=== PATIENT | male | born 1965 | race Caucasian/White ===

== ENCOUNTER 2019-12-12 12:02 | Inpatient (IN) | payer BC, OTHER ==
[~2019-12-12] VITALS: Ht 182.9 cm; Wt 145.2 kg
[~2019-12-12 12:02] MED LIST: AMARYL4 MG PO; CIALIS5 MG PO; FLEXERIL PO; GLUCOPHAGE1000 MG PO; LISINOPRIL10 MG PO; NORCO 5-325 TA1 EACH PO; ZOCOR 20 MG TAB20 M1 PO
[2019-12-12 12:04] VITALS: BP 87/39
[2019-12-12 12:46] LABS: WBC 6.4 thou/uL (4.0-11.0)
[2019-12-12 12:48] LABS: ABSOLUTE NEUTROPHILS 4.7 thou/uL (1.4-8.2); BASOPHILS 0.2 % (0.0-2.0); EOSINOPHILS 2.3 % (0.0-3.0); LYMPHOCYTES 13.7 % (24.0-44.0); MCH 30.9 pg (26.0-34.0); MCHC 33.9 g/dL (28.0-37.0); MCV 91.3 fL (80.0-100.0); MONOCYTES 9.8 % (1.0-8.0); PLATELET COUNT 170 thou/uL (150-400); RBC 1.93 mil/uL (4.50-6.00); RDW 14.6 % (10.5-14.5)
[2019-12-12 12:55] LABS: HEMATOCRIT 17.6 % (42.0-52.0)
[2019-12-12 12:59] LABS: CREATININE 5.7 mg/dL (0.7-1.3); POTASSIUM 4.6 mmol/L (3.5-5.1)
[2019-12-12 13:07] LABS: MAGNESIUM 2.1 mg/dL (1.8-2.4); TROPONIN-I 0.06 ng/mL (<0.06)
--- NOTE | 2019-12-12 15:37 | EKG ---
[facility] [place] [address] ELECTROCARDIOGRAM REPORT Name: GLADIS BEARD Room #: REG [facility].#: [id number] Admission: 12/12/19 Attend Phys: Discharge: Date of : 69 Report #: [id number] THIS REPORT FOR: cc: FAM - Family physician unknown FAM - Family physician unknown Nehemiah Taylor MD [facility] ~ THIS REPORT FOR: //name// [facility] ED Test Date: 2019-12-12 Test Time: 12:18:30 Pat Name: GLADIS BEARD Department: Room: Gender: M Room Service Waiter/Waitress: no : 1965 Requested By: Bernabe Saab Order Number: [id number] MD: Nehemiah Taylor Measurements Intervals [place] Rate: 62 P: 48 AR: 184 QRS: 30 QRSD: 168 T: 67 QT: 508 QTc: 516 Interpretive Statements Sinus rhythm Right bundle branch block Compared to ECG 01/31/2005 15:23:45 Right bundle-branch block now present Electronically Signed On 12-12-2019 15:37:07 CDT by Nehemiah Taylor [email or web address] <ELECTRONICALLY SIGNED> By: Nehemiah Taylor MD, FACC 12/12/19 1537 17 17 Nehemiah Taylor MD, FACC /EPI
[2019-12-12 16:32] VITALS: BP 130/67
--- NOTE | 2019-12-12 16:36 | NUR ---
1ST ATTEMPT TO CALL FOR REPORT, RECIEVING NURSE DELIVERING PT CARE. WILL RETURN CALL.
[2019-12-12] MEDS ORDERED: PLAVIX 75 MG TA75 MG PO (17:30)
[2019-12-12] MEDS ORDERED: NEXIUM40 MG PO (17:31)
[2019-12-12] MEDS ORDERED: METOLAZONE 5 MG5 MG PO (17:31)
[2019-12-12] MEDS ORDERED: ASA81BEC PO (17:32)
[2019-12-12] MEDS ORDERED: DRIZALMA SPRINK60 MG PO (17:32)
[2019-12-12] MEDS ORDERED: LOSARTAN POTAS100 MG PO (17:33)
[2019-12-12] MEDS ORDERED: NEPHRO-VITE RX1 TA1 PO (17:33)
[2019-12-12] MEDS ORDERED: LIPITOR 20 MG T20 M1 PO (17:35)
[2019-12-12] MEDS ORDERED: HYDRALAZINE HC100 MG PO (17:45)
[2019-12-12] MEDS ORDERED: RENAGEL800 MG PO (17:46)
[2019-12-12] MEDS ORDERED: MINOXIDIL2.5 MG PO (17:46)
[2019-12-12] MEDS ORDERED: NORVASC 2.5 MG2.5 M1 PO (17:47)
[2019-12-12] MEDS ORDERED: CARVEDILOL25 MG PO (17:48)
[2019-12-12 17:49] VITALS: BP 107/45
[2019-12-12] MEDS ORDERED: RETACRIT4000 UNIT/ IV (18:14)
[2019-12-12] MEDS ORDERED: LASIX 80 MG TAB80 MG PO (18:15)
[2019-12-12] MEDS ORDERED: MELATONIN10 M3 PO (18:16)
[2019-12-12] MEDS ORDERED: GABAPENTIN 100100 MG PO (18:16)
[2019-12-12] MEDS ORDERED: CYCLOBENZAPRINE10 MG PO (18:17)
[2019-12-12] MEDS ORDERED: LANTUS SUBQ (18:17)
[2019-12-12] MEDS ORDERED: HUMALOG100 UNIT/1 SUBQ (18:18)
[2019-12-12] MEDS ORDERED: VITAMIN C + RO500 MG PO (18:19)
[2019-12-12] MEDS ORDERED: [UNRECOGNIZED DRUG - OTHER] PO (18:19)
[2019-12-12] MEDS ORDERED: VIAGRA100 MG PO (18:20)
[2019-12-12] MEDS ORDERED: AZELASTINE205.5 MCG/ NARES (18:20)
[2019-12-12] MEDS ORDERED: AMOXICILLIN 50500 MG PO (18:21)
--- NOTE | 2019-12-12 18:47 | NUR ---
PT. ARRIVED ON UNIT. DENIES ANY CP, DENIES ANY SOB. IV'S ON LEFT HAND AND LEFT FOREARM AREA. FOOD TRAY ARRIVED AND HE ATE 100% ON HIS TRAY, "i WAS STARVING". RIGHT MIDDLE/LOWER BACK PAIN IS "FLARING UP AGAIN". RIGHT UPPER FOREARM IS THE LOCATION OF HIS DILAYSIS CATHETER, PATENT THRILL AND BRUIT BOTH OBSERVED AND PLAPATED TO TOUCH AND FEEL. TOLD ME HE IS CURENTLY ON A DILYSIS SCHEDULE OF , , WEDNESDAY AND THEN HE IS USUALLY THERE 5 HOURS "THEY PULL OFF 5 LITERS PER VISIT ON [facility]". PT. NSR, NO ECTOPY OBSERVED ON MONITOR , ON ROOM AIR ORIENTED AND PT. TO UNIT, CALL CHASE WITHIN REACH, BED LOWERED TO GROUND LOWEST LEVEL. NO PROSTHETICS FOR RIGHT KNEE AT HOSPITAL.
[2019-12-12 19:34] VITALS: BP 121/62
[2019-12-12 20:45] LABS: URINE BILIRUBIN NEGATIVE (Negative); URINE BLOOD TRACE (Negative); URINE CLARITY CLEAR; URINE COLOR YELLOW; URINE GLUCOSE-RANDOM* 1+ (Negative); URINE KETONES NEGATIVE (Negative); URINE LEUKOCYTES-REFLEX NEGATIVE (Negative); URINE NITRITE-REFLEX NEGATIVE (Negative); URINE PROTEIN (DIPSTICK) 2+ (Negative); URINE UROBILINOGEN 0.2 E.U./dl (0.2-1.0)
[2019-12-12 20:51] LABS: BACTERIA-REFLEX None Seen /HPF (None Seen); CASTS None Seen /LPF (None Seen); CRYSTALS None Seen /LPF (None Seen); SQUAMOUS 0-3 Few /LPF (0-3); URINE RBC 0-2 Rare /HPF (0-2); URINE WBC-REFLEX 0-5 Rare /HPF (0-5)
[2019-12-12 20:53] LABS: AMP/METHAMP Negative (Negative); BARBITURATES Negative (Negative); BENZODIAZEPINES Negative (Negative); COCAINE Negative (Negative); METHADONE Negative (Negative); OPIATES Negative (Negative); PCP Negative (Negative)
[2019-12-12 23:08] VITALS: BP 120/47; BP 132/57
[2019-12-12 23:17] VITALS: BP 127/58
[2019-12-13 05:17] LABS: CALCIUM 7.4 mg/dL (8.5-10.1); CREATININE 6.6 mg/dL (0.7-1.3); POTASSIUM 4.1 mmol/L (3.5-5.1); WBC 6.1 thou/uL (4.0-11.0)
[2019-12-13 05:20] LABS: HEMATOCRIT 20.1 % (42.0-52.0); HEMOGLOBIN 6.8 gm/dL (14.0-18.0); MCH 31.1 pg (26.0-34.0); MCV 91.3 fL (80.0-100.0); RBC 2.2 mil/uL (4.50-6.00); RDW 14.5 % (10.5-14.5)
[2019-12-13 05:50] VITALS: BP 122/69
--- NOTE | 2019-12-13 06:18 | NUR ---
ASSUME CARE 1900. PT/VITALS STABLE. INTERMITTENT LOWER BACK PAIN INDICATED. MODERATE TOLERANCE TO ACTIVITY. RIGHT BKA. PT IS WHEEL CHAIR BOUND. SR/BBB ON MONITOR. ADEQUATE REST NOTED THROUGH THE NIGHT. NO DISTRESS NOTED. ASSESSMENT CHARTED. PLAN IS FOR POSSIBLE EGD/COLONOSCOPY WITHIN A FEW DAYS. PT ON CLEAR LIQUID DIET NOW. WILL CONTINUE TO MONITOR AND FOLLOW WITH POC
[2019-12-13 07:00] VITALS: BP 148/71
[2019-12-13 11:15] VITALS: BP 146/70
--- NOTE | 2019-12-13 11:48 | NUR ---
Case opened to follow for dc planning. Hearse Driver visited with the pt and his spouse Geno at bedside. The pt is drowsy this morning and sitting up in bed. Pt defers to spouse for history and dc planning efforts. reports she has a dpoa document at home if needed. The pt has a rt BKA and is ESRD on dialysis.The pt was getting home health services prior to admission thru [facility]. His reports he was being referred to [facility] for inpt acute rehab eval per home PT Damian ([phone]) and his ortho Dr. Baker. He recently started working with his new prothesis and has 4 steps to get in and out of his home for dialysis MWF. He is disabled and goes to [facility]. His brother or a friend take him as his works fulltime days. His primary ins is per her employer and secondary is Medicare. He functions at a w/c level currently and does transfers over the w/c wheel with lots of bruising. He gets up and down the steps using a cooler to balance his rt stump. She has been trying to locate a [employer] to bid out a ramp due to saftey concerns. Local amputee support gp liason contact provided to the spouse for possible resource/referral info. She notes that he has been needing extra hemo dialysis runs to get more fluid off. Pt admitted with GI bleed and workup is in progress. Will request PT/OT/Rehab evals and initiate referral to [facility] for possible transfer to acute rehab once he is medically stable. Pt's spouse hopeful he can go directly there. His prothesis is currently at home. Care team updated. Dc raw material planner to fax the referral. [facility] liason Devika notified.
[2019-12-13 13:26] VITALS: BP 131/76; BP 140/75
[2019-12-13 13:41] LABS: % SATURATION 43 % (20-39); IRON 110 ug/dL (65-175); TIBC 255 ug/dL (250-450)
--- NOTE | 2019-12-13 13:52 | NUR ---
FAXED REFERRAL TO [facility] SPOKE WITH ROLANDO IN ADM SHE RECEIVED REFERRAL AND WILL REVIEW. DP TO FOLLOW.
[2019-12-13 16:45] VITALS: BP 175/87
--- NOTE | 2019-12-13 17:29 | NUR ---
PT ALERT AND ORIENTED. VSS. HAD DIALYSIS TODAY. PRN PAIN MED GIVEN WITH PARTIAL RELIEF. ON CLEAR LIQUIDS. SR ON TELE. NO CONCERNS AT THIS TIME.
[2019-12-13 20:28] VITALS: BP 154/92
[2019-12-14 03:12] VITALS: BP 168/71
--- NOTE | 2019-12-14 03:45 | NUR ---
CARE ASSUMED 1900. PT ALERT AND ORIENTED. VITALS STABLE. DENIES CHEST PAIN, NAUSEA OR VOMITING. C/O LOWER BACK PAIN, FENTANYL 25 MCG Q 4H GIVEN. CPAP OVERNIGHT., NO OXYGEN NEEDED. WILL CONTINUE TO MONITOR AND FOLLOW POC.
[2019-12-14 07:49] VITALS: BP 172/94
--- NOTE | 2019-12-14 08:02 | 2DMMODE ---
[facility] [address] [place] [address] 2 D/M-MODE ECHOCARDIOGRAM Name: GLADIS BEARD Room #: 203-P ADM IN M.R.#: [id number] Admission: 12/12/19 Attend Phys: Butch Marks MD Discharge: Date of : 69 Report #: [id number] THIS REPORT FOR: cc: FAM - Family physician unknown FAM - Family physician unknown Nehemiah Taylor MD [facility] ~ APPROVED REPORT Study performed: 12/14/2019 06:52:52 EXAM: Comprehensive 2D, Doppler, and color-flow Echocardiogram Patient Location: Bedside Room #: 203 Status: routine BSA: 2.57 HR: 84 bpm BP: 168/71 mmHg Rhythm: NSR Other Information Study Quality: Adequate Indications Short of breath, history of MRSA, endocarditis. Hx: cardiac stents, PVD, ESRD, DM, Right BKA. 2D Dimensions RVDd: 42.52 mm IVSd: 14.77 (7-11mm) LVOT Diam: 21.76 (18-24mm) LVDd: 48.64 mm PWd: 13.84 (7-11mm) Ascending Ao: 28.96 (22-36mm) LVDs: 35.06 (25-40mm) Aortic Root: 31.15 mm Volumes Left Atrial Volume (Systole) Single Plane 4CH: 107.62 mL Single Plane 2CH: 103.13 mL LA ESV Index: 44.00 mL/m2 Aortic Valve AoV Peak Manuel.: 2.20 m/s AO Peak Gr.: 19.34 mmHg LVOT Max P.79 mmHg AO Mean Gr.: 9.25 mmHg AO V2 Mean: 1.42 m/s LVOT Max V: 1.56 m/s [facility] [address] [address] 2 D/M-MODE ECHOCARDIOGRAM Name: CHIRAGGLADIS Room #: 203-P [facility] IN [facility].#: [id number] Admission: 12/12/19 Attend Phys: Butch Marks MD Discharge: Date of : 69 Report #: [id number] AO V2 VTI: 41.31 cm SANDY Vmax: 2.65 cm2 Mitral Valve E/A Ratio: 1.3 MV Decel. Time: 190.50 ms MV E Max Manuel.: 1.74 m/s MV A Manuel.: 1.30 m/s MV PHT: 55.25 ms IVRT: 59.98 ms Pulmonary Valve PV Peak Manuel.: 1.60 m/s PV Peak Gr.: 10.22 mmHg Pulmonary Vein P Vein S: 0.40 m/s P Vein D: 0.72 m/s P Vein S/D Ratio: 0.56 Tricuspid Valve TR Peak Manuel.: 3.44 m/s RAP Estimate: 15.00 mmHg TR Peak Gr.: 47.32 mmHg PA Pressure: 62.00 mmHg Left Ventricle The left ventricle is normal size. Mild to moderate concentric left ventricular hypertrophy. Left ventricular systolic function is normal. LVEF is 60-65%. Moderate diastolic dysfunction is present. Right Ventricle Right ventricle is at the upper limits of normal. The right ventricular systolic function is normal. Atria Left atrium is moderately dilated. Right atrium is mildly dilated. Aortic Valve Aortic valve leaflets are mildly thickened and calcified. Trace aortic regurgitation. There is no aortic valvular stenosis. Mitral Valve The mitral valve is normal in structure. Mild mitral annular calcification. Mild mitral regurgitation. No evidence of mitral valve stenosis. [facility] [address] [place] [address] 2 D/M-MODE ECHOCARDIOGRAM Name: GLADIS BEARD Room #: 203-P ADM IN M.R.#: [id number] Admission: 12/12/19 Attend Phys: Butch Marks MD Discharge: Date of : 69 Report #: [id number] Tricuspid Valve The tricuspid valve is normal in structure. Mild to moderate tricuspid regurgitation. Estimated PAP is 60mmHg. Pulmonic Valve Pulmonic valve is not well visualized. Mild pulmonic regurgitation. Great Vessels The aortic root is normal in size. The ascending aorta is normal in size. IVC is dilated and collapses <50% with inspiration. Pericardium There is no pericardial effusion. <Conclusion> Normal left ventricle size, moderate concentric hypertrophy Ejection fraction 60% Mild diastolic dysfunction Mild biatrial enlargement Mild mitral valve insufficiency Moderate tricuspid valve insufficiency Severe pulmonary hypertension, PA pressure systolic estimated at 60 mmHg No pericardial effusion <ELECTRONICALLY SIGNED> By: Nehemiah Taylor MD, FACC 12/14/19800 0 0 Nehemiah Taylor MD, FACC /INF
--- NOTE | 2019-12-14 10:34 | NUR ---
Spoke with [facility] they have referral. Need therapy evals. Plan coloscopy/endoscopy.
[2019-12-14 11:26] VITALS: BP 123/76
[2019-12-14 16:53] VITALS: BP 160/79
[2019-12-14 20:28] VITALS: BP 145/72
--- NOTE | 2019-12-15 03:13 | NUR ---
CARE ASSUMED 1899. PT ALERT AND ORIENTED. MOVING INDEPENDENTLY IN HIS ROOM. C/O CHRONIC BACK PAIN ALLEVIATED MY PRN PAIN MEDS. NPO SINCE MIDNIGHT FOR PENDING EGD/COLONOSCOPY THIS AM. NO TELE CONCERNS. WILL CONTINUE TO MONITOR AND FOLLOW POC.
[2019-12-15 03:56] VITALS: BP 146/61
[2019-12-15 05:18] LABS: HEMATOCRIT 23.7 % (42.0-52.0); HEMOGLOBIN 8.2 gm/dL (14.0-18.0); MCH 30.9 pg (26.0-34.0); MCHC 34.5 g/dL (28.0-37.0); MCV 89.6 fL (80.0-100.0); RBC 2.65 mil/uL (4.50-6.00); RDW 14.6 % (10.5-14.5); WBC 7.2 thou/uL (4.0-11.0)
[2019-12-15 05:27] LABS: CALCIUM 8.3 mg/dL (8.5-10.1); POTASSIUM 4.3 mmol/L (3.5-5.1)
[2019-12-15 08:02] VITALS: BP 180/76
[2019-12-15] MEDS ORDERED: RENVELA800 MG PO (09:55)
--- NOTE | 2019-12-15 10:35 | NUR ---
Received awake on bed. On nothing per orem, pt informed and aware. A+Ox4. On room air. Vital signs stable- with BP elevation noted; ongoing dialysis- expecting to remove 2L as per dialysis nurse- will let RN know if BP remains elevated. On telemetry; no complaints of chest pain, crushing sensation and heaviness; strips attached to chart. On blood sugar monitoring- taken and recorded according; with sliding scale insulin ordered. Scheduled for EGD/Colonoscopy today, consent signed; RN ERIC called, pt supposed to have procedure prior to dialysis, informed her that pt has been hooked up before shift change this AM and won't be done til noon time. Ongoing dialysis; dialysis access at R upper arm. With R BKA- stump fully healed; no dressing in place; prosthesis at bedside. With SL at L AC- intact and flushing well. Assisted in ADLs. Falls bundle in place. No nausea, no vomiting and no abdominal pain noted upon assessment. Able to turn self in bed. To continue monitoring patient.
--- NOTE | 2019-12-15 11:35 | NUR ---
spoke with . Patient dializing. Process prior to hosp stay was eval for acute rehab at [facility]. Patient completed last Home health physical therapy visit with Hakeem. The referral to [facility] began outpatient. It was initiated with Dr John and Rena for prosethises training. reports 5N evaled and she is agreeable to either facility. Pending bed status on 5N cont to update [facility].
[2019-12-15 11:36] VITALS: BP 172/84
[2019-12-15 13:24] LABS: CALCIUM 8.9 mg/dL (8.5-10.1); POTASSIUM 3.5 mmol/L (3.5-5.1)
[2019-12-15 13:27] LABS: CREATININE 2.9 mg/dL (0.7-1.3)
[2019-12-15 16:40] VITALS: BP 193/79
[2019-12-15 18:26] VITALS: BP 174/79
[2019-12-15 19:30] VITALS: BP 167/76
[2019-12-16 03:40] VITALS: BP 175/77
--- NOTE | 2019-12-16 05:35 | NUR ---
NO CONCERNS OVERNIGHT, PAIN MANAGEMENT OF LOWER BACK PAIN WAS REMAINS THE GOAL. SA ON THE MONITOR. NO CHEST PAIN, NO SOB REPORTED. WILL CONTINUE TO MONITOR AND FOLLOW POC.
[2019-12-16 10:30] VITALS: BP 155/76
[2019-12-16 11:15] VITALS: BP 155/76
--- NOTE | 2019-12-16 18:22 | NUR ---
ASSESSMENT DOCUMENTED, VSS AND AFEBRILE. LOWER BACK PAIN, AND MEDICATED INDICATED. NO SOB, OR ACUTE DISTRESS NOTED.
[2019-12-16 19:30] VITALS: BP 154/73
[2019-12-17 03:30] VITALS: BP 138/68
[2019-12-17 03:38] LABS: HEMATOCRIT 20.1 % (42.0-52.0); MCH 31.1 pg (26.0-34.0); MCHC 34.6 g/dL (28.0-37.0); MCV 89.8 fL (80.0-100.0); RBC 2.24 mil/uL (4.50-6.00); RDW 15.1 % (10.5-14.5); WBC 6.3 thou/uL (4.0-11.0)
[2019-12-17 03:44] LABS: CALCIUM 8.2 mg/dL (8.5-10.1); MAGNESIUM 2.4 mg/dL (1.8-2.4); POTASSIUM 4.4 mmol/L (3.5-5.1)
--- NOTE | 2019-12-17 05:52 | NUR ---
Pt. rested quietly at intervals during the night when checked on during frequent rounds. He c/o chronic back pain and ivp pain meds given (see emar) with some relief noted. No active bleeding.
[2019-12-17 08:36] VITALS: BP 137/71
[2019-12-17 13:19] VITALS: BP 138/73
[2019-12-17 13:31] LABS: APTT 28.4 Seconds (24.5-32.8); PROTIME 10.5 Seconds (9.3-11.4)
[2019-12-17 14:30] VITALS: BP 138/73
[2019-12-17 16:30] VITALS: BP 184/85
--- NOTE | 2019-12-17 17:34 | NUR ---
ASSESSMENT DOCUMENTED, SLEPT ON AND OFF THROUGHOUT THE DAY, VSS AND AFEBRILE. MEDICATED FOR LOWER BACK PAIN. RBC ORDERED TO GIVE TOMORROW WITH DIALYSIS. AND WILL CONTINUE WITH POC.
[2019-12-17 19:49] VITALS: BP 135/69
[2019-12-18 04:27] LABS: CALCIUM 7.7 mg/dL (8.5-10.1); CREATININE 6.9 mg/dL (0.7-1.3); MAGNESIUM 2.4 mg/dL (1.8-2.4); POTASSIUM 4.3 mmol/L (3.5-5.1)
[2019-12-18 05:33] VITALS: BP 171/83
[2019-12-18 08:30] VITALS: BP 145/79; BP 168/85; BP 180/111
[2019-12-18 08:58] LABS: POLYS 69.4 % (36.0-66.0)
[2019-12-18 09:00] LABS: ABSOLUTE NEUTROPHILS 4.6 thou/uL (1.4-8.2); BASOPHILS 0.5 % (0.0-2.0); EOSINOPHILS 3.3 % (0.0-3.0); HEMOGLOBIN 6.7 gm/dL (14.0-18.0); LYMPHOCYTES 19.8 % (24.0-44.0); MCH 30.7 pg (26.0-34.0); MCHC 34.5 g/dL (28.0-37.0); PLATELET COUNT 170 thou/uL (150-400); RBC 2.17 mil/uL (4.50-6.00); RDW 14.4 % (10.5-14.5); WBC 6.7 thou/uL (4.0-11.0)
[2019-12-18 09:07] VITALS: BP 140/91
[2019-12-18 09:42] LABS: HEMATOCRIT 19.3 % (42.0-52.0)
[2019-12-18 16:00] VITALS: BP 183/94
--- NOTE | 2019-12-18 17:06 | PATH ---
[facility] [address] [place] [address] PATHOLOGY RPT PROCEDURE Name: GLADIS JOSHI Room #: 203-P ADM IN M.R.#: [id number] Admission: 12/12/19 Date of : 69 Discharge: Report #: [id number] Path Case #: [id number] [facility] Accession Number: [id number] . 01 Material submitted: . stomach - BIOPSY OF GASTRITIS R/O H. PYLORI . 01 Clinical history: . ALTERED MENTAL STATUS . 02 Diagnosis: Gastric mucosa, gastritis, rule out H. pylori, endoscopic biopsy: - Mild chronic gastritis with features of reactive gastropathy. - Negative for intestinal metaplasia or atrophy. - Negative for Helicobacter pylori (properly-controlled immunohistochemical stain performed). . (IUV:mml; 12/18/2019) QLM 12/18/2019 1345 Local . 02 Electronically signed: . Radha Lunsford MD, Pathologist NPI- [id number] . 01 Gross description: . Received in formalin labeled "Gladis Joshi BX of gastritis rule out H. pylori" are multiple kemp-brown soft tissue fragments measuring in aggregate 0.7 x 0.5 x 0.1 cm. The specimen is submitted entirely in A1. ([facility]; 12/17/2019) [facility] 12/17/2019 1042 Local . 02 Pathologist provided ICD-10: K29.50 . 02 CPT . 753795, [id number] Specimen Comment: A courtesy copy of this report has been sent to [phone] Specimen Comment: [id number] Specimen Comment: Report sent to / DR STRICKLAND Performed at: [address] [id number] MD Brannon Hopson MD Phone: [phone] Performed at: [address] [id number] [address] [address] PATHOLOGY RPT PROCEDURE Name: GLADIS JOSHI Room #: 203-P ADM IN M.R.#: [id number] Admission: 12/12/19 Date of : 69 Discharge: Report #: [id number] Path Case #: [id number] MD Radha Lunsford MD Phone: [phone]
--- NOTE | 2019-12-18 18:56 | NUR ---
MEDICATED NEEDED FOR BACK PAIN, BIOPSY WAS DONE TODAY AND SENT TO LAB. DIALIZED AND VSS. DIALYSIS MACHINE BP READING WAS WRONG. PROGRESSING TOWARDS GOALS AND WILL CONTINUE WITH POC.
[2019-12-18 19:09] VITALS: BP 15/81
[2019-12-18 19:10] VITALS: BP 151/81
--- NOTE | 2019-12-19 04:00 | NUR ---
ASSESSMENTS CHARTED, MEDS CHARTED GIVEN. PATIENT RESTING ON BED DURING SHIFT. ALERT AND ORIENTED. HAS LEFT LOWER BACK PUNCTURE SITE FROM SPINAL DISC ASPIRATION. C/O BACK PAIN CHRONIC. FENTANYL GIVEN CHARTED. FALL PRECAUTIONS IN PLACE DURING SHIFT. PLAN OF CARE TO CONTINUE ABX THERAPY.
[2019-12-19 05:00] VITALS: BP 162/88
[2019-12-19 08:00] VITALS: BP 142/64
[2019-12-19 09:43] LABS: HEMATOCRIT 20.8 % (42.0-52.0); HEMOGLOBIN 7.1 gm/dL (14.0-18.0); MCH 30.5 pg (26.0-34.0); MCHC 34.3 g/dL (28.0-37.0); MCV 88.8 fL (80.0-100.0); RBC 2.34 mil/uL (4.50-6.00); RDW 14.6 % (10.5-14.5); WBC 7.3 thou/uL (4.0-11.0)
--- NOTE | 2019-12-19 10:44 | NUR ---
Spoke with patient and . Discussed 5N/[facility]. They chose to cont plan for [facility]. They allow dtr to visit on Halloween and they are interested in amputee program. Updated [facility] and requested they seek auth. Casemgt following.
[2019-12-19 11:45] VITALS: BP 149/68
[2019-12-19 12:00] VITALS: BP 105/58
--- NOTE | 2019-12-19 14:17 | NUR ---
Nutrition: pt admitted with generalized weakness, ABLA. GIB suspected diverticular source per GI. Hx ESRD on Hemodialysis, NIDDM, Rt BKA. Eating well 100% of meals on Renal, 2000 arsen carb controlled diet. Pt voices no diet related questions. BG 182-290 on SSI. Consider pt as low nutrition risk.
--- NOTE | 2019-12-19 16:13 | NUR ---
FAXED CLINICAL UPDATE TO [facility] RECEIVED CONFIRMATION AND LEFT MSG WITH ROLANDO IN ADM.
[2019-12-19 16:15] VITALS: BP 162/73
--- NOTE | 2019-12-19 17:50 | NUR ---
RECEIVED PT'S CARE AROUND 1600 FROM MARGY JACINTO; PT. AOX4; PM MEDICATIONS GIVEN; EDUCATED ABOUT FALL PRECAUTIONS; 1600 RE-ASSESSMENT PERFORMED; MONITORING; WILL PASS ON REPORT;
[2019-12-19 20:04] VITALS: BP 128/60
--- NOTE | 2019-12-20 04:21 | NUR ---
ASSUMED PT'S CARE @ 2300. PT ALERT AND ORIENTED. PT SLEPT OFF AND ON THIS SHIFT. PRN PAIN MED GIVEN PER PT'S REQUEST. LFA IV SL. DIALYSIS TODAY. TOTAL OF 800ML VOID THIS SHIFT. FALL PRECAUTIONS IN PLACE. CALL LIGHT WITHIN REACH. PT ENCOURAGED TO CALL WHEN NEEDING ASSISTANCE. WILL CONTINUE TO MONITOR.
[2019-12-20 05:19] VITALS: BP 149/74
[2019-12-20 08:15] VITALS: BP 165/93
[2019-12-20 11:05] VITALS: BP 161/107
--- NOTE | 2019-12-20 14:16 | NUR ---
[facility] is in process of obtaing authorization for acute rehab. Patient is now on IV pain medication. he cannot rec at acute rehab. Rn aware attempting to switch to oral.
[2019-12-20 15:45] VITALS: BP 177/91
[2019-12-20 16:00] LABS: HEMATOCRIT 21.6 % (42.0-52.0); HEMOGLOBIN 7.3 gm/dL (14.0-18.0); MCH 30.3 pg (26.0-34.0); MCHC 33.9 g/dL (28.0-37.0); MCV 89.4 fL (80.0-100.0); RBC 2.42 mil/uL (4.50-6.00); RDW 14.8 % (10.5-14.5); WBC 7.9 thou/uL (4.0-11.0)
--- NOTE | 2019-12-20 16:02 | NUR ---
FAXED CLINICAL UPDATE TO [facility] SPOKE WITH ROLANDO IN ADM SHE RECEIVED UPDATE AND IS WORKING ON AUTH,
--- NOTE | 2019-12-20 16:06 | PATH ---
[facility] [address] [place] [address] PATHOLOGY RPT PROCEDURE Name: GLADIS BEARD Room #: 203-P ADM IN M.R.#: [id number] Admission: 12/12/19 Date of : 69 Discharge: Report #: [id number] Path Case #: [id number] Note [facility] Accession Number: [id number] TESTS RESULT FLAG UNITS REF RANGE LAB Clinician Provided Cytology Information No. of containers..01 Other (Miscellaneous) Source: CSF DIAGNOSIS: 02 CSF NEGATIVE FOR MALIGNANT EPITHELIAL CELLS. SCANT CELLULARITY. OCCASIONAL LYMPHOCYTES IDENTIFIED. NEGATIVE FOR VIRAL INCLUSIONS OR PARASITIC ORGANISMS. Pathologist ICD10: 02 R79.89 Signed out by: Radha Lunsford MD, Pathologist NPI- [id number] Performed by: Judy Kruse, Batcher Operator ([facility]) Gross description: 01 5ML, CLEAR COLORLESS, 1 TP /LCS 12/19/2019 1103 Local FLAG LEGEND: L-Low Normal,H-High Normal,LL-Alert Low,HH-Alert High <-Panic Low,>-Panic High,A-Abnormal,AA-Critical Abnormal Performed at: [address] [place] [address] Calderon Rothman MD, [address] [address] Radha Lunsford MD, Specimen Comment: A courtesy copy of this report has been sent to [phone] Specimen Comment: [phone] Specimen Comment: Report sent to / DR CH Performed at: [address], [place], [place] [id number] MD Calderon Rothman MD Phone: [phone]
--- NOTE | 2019-12-20 16:21 | NUR ---
ASSESSMENT CHARTED. PT ALERT AND ORIENTED. VSS. HAD DIALYSIS THIS AM. PRN PAIN MED GIVEN WITH PARTIAL RELIEF. PARTICIPATED IN PT/OT. NO CONCERNS AT THIS TIME. PROGRESSING WELL TOWARDS DISCHARGE GOAL.
[2019-12-20 20:24] VITALS: BP 131/73
[2019-12-21 03:09] VITALS: BP 145/83
--- NOTE | 2019-12-21 04:35 | NUR ---
CARE ASSUMED 1900. PT ALERT AND ORIENTED. VITALS STABLE. C/O BACK PAIN. ALLEVIATED BY TRAMADOL. DENIES N/V/D. NO CHEST PAIN REPORTED. WILL CONTINUE TO MONITOR AND FOLLOW POC.
[2019-12-21 05:39] LABS: HEMOGLOBIN 6.7 gm/dL (14.0-18.0); RDW 15.4 % (10.5-14.5); WBC 8.8 thou/uL (4.0-11.0)
[2019-12-21 05:42] LABS: MCH 31.2 pg (26.0-34.0); MCV 89.3 fL (80.0-100.0); RBC 2.16 mil/uL (4.50-6.00)
[2019-12-21 05:53] LABS: HEMATOCRIT 19.2 % (42.0-52.0)
[2019-12-21 05:54] LABS: CALCIUM 7.9 mg/dL (8.5-10.1); CREATININE 4.6 mg/dL (0.7-1.3); MAGNESIUM 2.3 mg/dL (1.8-2.4); POTASSIUM 3.8 mmol/L (3.5-5.1)
[2019-12-21 08:00] VITALS: BP 165/79
[2019-12-21 11:16] VITALS: BP 117/57; BP 142/75
[2019-12-21 15:00] VITALS: BP 106/54
--- NOTE | 2019-12-21 15:51 | NUR ---
ASSESSMENT CHARTED. PT ALERT AND ORIENTED. VSS. HAD 1 UNIT OF BLOOD TRANSFUSION THIS AM. PRN PAIN MED GIVEN FOR CHRONIC LOWER BACK PAIN. NPO AFTER MIDNIGHT FOR EGD IN AM. NO CONCERNS AT THIS TIME.
--- NOTE | 2019-12-21 15:58 | NUR ---
[facility] updated, pt with low hgb and getting a unit of blood today. GI reconsulted and pt is npo for EGD in the am. They are in the process of obtaining ins auth and will touch base tomorrow on dc timeframe.
[2019-12-21 16:05] LABS: HEMATOCRIT 22.1 % (42.0-52.0); HEMOGLOBIN 7.5 gm/dL (14.0-18.0)
[2019-12-21 20:15] VITALS: BP 110/89
[2019-12-22 04:15] VITALS: BP 130/45
--- NOTE | 2019-12-22 04:46 | NUR ---
Assumed pt care at 1900. Pt is alertr and oriented. No sign of distress noted in pt. Pt is stable. Denies pain. Fall precaution in place. Assessment completed and documented. Scheduled meds administered to pt. Pt is NPO after midnight for a scheduled EGD. No acute events overnight. Continue to monitor. No further needs at this time.
[2019-12-22 07:32] VITALS: BP 106/73
--- NOTE | 2019-12-22 09:53 | P ---
[facility] [address] [place] [address] PROCEDURE REPORT Name: GLADIS BEARD Room #: 203-P ADM IN M.R.#: [id number] Admission: 12/12/19 Attend Phys: Butch Marks MD Discharge: Date of : 69 Report #: [id number] THIS REPORT FOR: cc: FAM - Family physician unknown FAM - Family physician unknown Lopez Hernandez MD ~ CC: Butch Marks MD FAM unknown PROCEDURE PERFORMED: Colonoscopy with bleeding control. HISTORY OF PRESENT ILLNESS: The patient is a 54-year-old male with a history of end-stage renal disease, on hemodialysis; chronic anemia. Hemoglobin recently was in the 9 range. On admission, he was hypotensive, and an admit hemoglobin of 6.0. He was transfused 2 units, he is at 8.2. He denied any obvious bright red blood per rectum or melena. The patient is on aspirin and Plavix, these have been held for the last few days. He is on Nexium. Upper endoscopy was just performed, which was normal. Plan is for colonoscopy. DESCRIPTION OF PROCEDURE: The risks and benefits of the procedure were explained to the patient, those risks including but not limited to bleeding, perforation and the risk of sedation. He understood these risks and gave informed consent. Sedation was given using propofol per anesthesia. Next, a digital rectal exam was initially performed, which was normal. Next, using a standard Olympus colonoscope, the scope was placed in the patient's anus and advanced under direct vision to the cecum. The overall prep was good in most areas. There was a combination of some bright red blood and old blood scattered throughout the entire colon today. Multiple washings and aspirations were performed. Several areas of clots were noted as well. I spent a lot of time going back and forth multiple times with washing. The cecum and ileocecal valve were normal. The ascending and transverse colon were normal. A few scattered diverticula were noted in the descending and sigmoid colon. One diverticulum in particular had some surrounding erythema. No evidence of purulent drainage, no clot, but this may have been the source of recent bleeding. Therefore, I proceeded with a single Endoclip placement. There was no bleeding after Endoclip placement. The rectal mucosa was normal. Small internal hemorrhoids were noted. No evidence of bleeding. Again, several times I went back and forth throughout his entire colon during this procedure. Once the areas were cleaned and the endoclip was placed, there were no signs of any further bleeding at this time. At this point, the scope was then withdrawn and the procedure terminated. The patient tolerated the procedure well. IMPRESSION: 1. Suspect diverticular bleed, possibly from sigmoid colon diverticulum, status post Endoclip placement as described above. 2. A combination of bright red blood and old blood scattered throughout the [facility] [address] [place] [address] PROCEDURE REPORT Name: GLADIS BEARD Room #: 203-P ADM IN M.R.#: [id number] Admission: 12/12/19 Attend Phys: Butch Marks MD Discharge: Date of : 69 Report #: [id number] entire colon today. 3. Small nonbleeding internal hemorrhoids. RECOMMENDATIONS: 1. Observe the patient post-procedure. 2. We will advance diet. 3. We will repeat hemoglobin tomorrow. 4. If patient has recurrent bleeding, consider a nuclear bleeding scan at that point. Thank you for allowing me to participate in his care. <ELECTRONICALLY SIGNED> By: Lopez Hernandez MD 12/22/19 0953 1515 2105 Lopez Hernandez MD /nt
--- NOTE | 2019-12-22 09:53 | P ---
[facility] [place]ctor [place] [address] PROCEDURE REPORT Name: GLADIS BEARD Room #: 203-P ADM IN M.R.#: [id number] Admission: 12/12/19 Attend Phys: Butch Marks MD Discharge: Date of : 69 Report #: [id number] THIS REPORT FOR: cc: FAM - Family physician unknown FAM - Family physician unknown Lopez Hernandez MD ~ CC: Butch Marks MD [facility] unknown PROCEDURE PERFORMED: Upper endoscopy with biopsies. HISTORY OF PRESENT ILLNESS: The patient is a 54-year-old male with a history of end-stage renal disease on hemodialysis, history of chronic anemia; however, he has had a drop in his hemoglobin recently and a Hemoccult-positive stool on admission. He was admitted with hypotension. This is now resolved. He denies any obvious bright red blood per rectum or melena. The patient has a history of vascular disease, diabetes. He has undergone an amputation of the lower extremity. He is on aspirin and Plavix, also on Nexium. He denies any dysphagia. No nausea or vomiting. No abdominal pain. Plan is for EGD and colonoscopy today. DESCRIPTION OF PROCEDURE: The risks and benefits of the procedure were explained to the patient, those risks including but not limited to bleeding, perforation and the risk of sedation. He understood these risks and gave informed consent. Sedation was given using propofol per anesthesia. Next, using a standard Olympus upper endoscope, the scope was placed in the patient's mouth and advanced under direct vision through the esophagus, stomach and into the second portion of the duodenum. The larynx was normal in appearance. The esophagus was normal throughout. The GE junction was normal. Upon entering the stomach, a small hiatal hernia was noted. There was a mild gastritis noted in the gastric body. No evidence of erosions or ulcerations. No evidence of bleeding. Biopsies were obtained to rule out H. pylori. The pylorus was normal and patent. The duodenal bulb, first and second portion were all normal. The scope was then withdrawn and the procedure terminated. The patient tolerated the procedure well. IMPRESSION: 1. Mild gastritis. No evidence of bleeding. 2. Small hiatal hernia. 3. Otherwise, normal upper endoscopy. RECOMMENDATIONS: 1. Await biopsy results. 2. Continue daily PPI therapy. 3. We will proceed with colonoscopy next day. [address] [address] PROCEDURE REPORT Name: GLADIS BEARD Room #: 203-P [facility] IN M.R.#: [id number] Admission: 12/12/19 Attend Phys: Butch Marks MD Discharge: Date of : 69 Report #: [id number] Thank you for allowing me to participate in his care. <ELECTRONICALLY SIGNED> By: Lopez Hernandez MD 12/22/19 0953 [id number] 39 Lopez Hernandez MD /nt
--- NOTE | 2019-12-22 11:13 | NUR ---
Pt is dialyzing this am and plans for EGD after. ANDRE updated and they have insurance auth in place should the pt be medically stable for dc over the weekend. Weekend staff to contact the [facility] liason Dejah at [phone] to finalize transfer arrangements. They would need a chart copy sent with the pt, dc summary and instructions faxed to [phone] and report called to [phone]. Will follow.
[2019-12-22 15:27] VITALS: BP 131/86
--- NOTE | 2019-12-22 18:42 | NUR ---
ASSUMED CARE PT SHIFT CHANGE. ASSESSMENTS CHARTED.MEDS GIVEN PER APR. PT ALERT AND ORIENTED.VSS. C/O BACK PAIN MANAGED WITH PO PAIN MEDS. HEMODIALYSIS THIS SHIFT WITH 2L REMOVED. PT TOLERATED WELL. PT HAD M2 CAPSULE PLACED THIS SHIFT IN GI LAB. TOLERTAING DIET. CAPSULE STUDY BELT TO BE REMOVED AT 2130 TONIGHT PT AWARE. PT CURRENTLY SITTING UP IN BED. ASKING ABOUT TEST RESULTS. WILL CONT TO MONITOR AND FOLLOW POC. WILL PASS ON REPORT TO WALTER JI.
[2019-12-22 19:50] VITALS: BP 129/88
[2019-12-22 20:00] VITALS: BP 82/54
[2019-12-23 04:22] VITALS: BP 170/80
--- NOTE | 2019-12-23 06:49 | NUR ---
ASSUME CARE 1900. PT STABLE. VITALS STABLE BUT BP RUNS HIGH AT TIMES. INTERMITTENT LOWER BACK PAIN. MWF DIALYSIS PT. PT MAKES URINE WELL. TOLERATES ACTIVITY WELL. ASSESSMENT CHARTED. PROGRESSING WELL WITH POC. PLAN IS TO CONTINUE TO MONITOR AND STABILIZE BLOOD SUGAR/WAIT ON RESULTS FROM FLUID CULTURE ASPIRATED FROM LUNBAR SPINE. POC WILL BE BASED ON RESULTS. WILL CONTINUE TO MONITOR AND FOLLOW WITH POC
[2019-12-23 07:34] VITALS: BP 134/69
[2019-12-23 09:26] LABS: HEMATOCRIT 21.5 % (42.0-52.0); HEMOGLOBIN 7.2 gm/dL (14.0-18.0); MCH 30.5 pg (26.0-34.0); MCHC 33.5 g/dL (28.0-37.0); MCV 90.9 fL (80.0-100.0); RBC 2.37 mil/uL (4.50-6.00); RDW 15.5 % (10.5-14.5); WBC 7.6 thou/uL (4.0-11.0)
[2019-12-23] MEDS ORDERED: CARVEDILOL12.5 MG PO (10:47)
--- NOTE | 2019-12-23 11:56 | NUR ---
PT WANTING HIM TO GO TO 5N, OUT OF NET WORK WITH INSURANCE. CM PHOTO SPECIALIST CALLED AND SPOKE WITH HIS VIA PHONE CALL AND OK WITH DC WEDNESDAY TO . CM CALLED SPOKE WITH SHAREE WITH [facility], SHE WILL CALL [facility] ON 12/24/19 TO SET UP DC TIME AND TRANSPORT. BEDSIDE NURSE TO CALL REPORT [phone], SEND CHART COPY AND FAX DC ORDERS TO [phone].
[2019-12-23 15:25] VITALS: BP 129/91
--- NOTE | 2019-12-23 17:30 | NUR ---
ASSESSMENT CHARTED. PT ALERT AND ORIENTED. VSS. RECEIVED PRN PAIN MED WITH PARTIAL RELIEF. PLAN TO BE DISCHARGE IN AM. NO CONCERNS AT THIS TIME. PROGRESSING WELL TOWARDS DISCHARGE GOAL.
[2019-12-23 18:09] VITALS: BP 128/94; BP 144/80
[2019-12-23 19:00] VITALS: BP 144/75
--- NOTE | 2019-12-23 19:02 | NUR ---
ORDERS GIVEN TO TRANSFUSE 1 UNIT OF BLOOD.
[2019-12-24 04:37] LABS: HEMATOCRIT 23.8 % (42.0-52.0); HEMOGLOBIN 8.2 gm/dL (14.0-18.0); MCH 31.1 pg (26.0-34.0); MCHC 34.5 g/dL (28.0-37.0); RBC 2.64 mil/uL (4.50-6.00); RDW 15.1 % (10.5-14.5); WBC 9.7 thou/uL (4.0-11.0)
--- NOTE | 2019-12-24 07:49 | NUR ---
ASSUME CARE 1900. PT/VITALS STABLE. INTERMITTENT LOWER BACK PAIN WITH RELIEF FROM PAIN MEDS. GOOD TOLERANCE TO ACTIVITY. ASSESSMENT AAS CHARTED. PROGRESSING WELL WITH POC. BLOOD SUGAR STABILIZED. 1 UNIT OF BLOOD GIVEN WITH HG UP TO 8.2 THIS AM. PLAN IS POSSIBLE DISCHARGE TODAY. WILL CONTINUE TO MONITOR AND FOLOW WITH POC
[2019-12-24 08:10] VITALS: BP 156/121
[2019-12-24 09:02] VITALS: BP 203/95
[2019-12-24] MEDS ORDERED: PERCOCET PO (10:22)
[2019-12-24 10:36] VITALS: BP 147/67
--- NOTE | 2019-12-24 12:58 | NUR ---
ASSESSMENT CHARTED. PT ALERT AND ORIENTED. PRN PAIN MED GIVEN WITH PARTIAL RELIEF. HGB STABLE. ORDERS GIVEN TO DISCHARGE PT TO REHAB. NOTIFIED. STATED SHE WANTED TO BE IN THE UNIT BEFORE PT GETS DISCHARGE. REPORT CALLED IN TO REHAB. GIVEN A COPY OF DISCHARGE PAPER WORK. HAD QUESTIONS ON DISCHARGE MEDS. DR TRUJILLO EXPLAINED IT TO HER IN PERSON. NOT HAPPY THAT PT IS DISCHARGING ON THE WEEKEND. LOADER TECHNICIAN NOTIFIED AND TALKED TO THE ON THE PHONE. PT LEFT THE FACILTY WITH ALL HIS BELONGIONGS.
== END 2019-12-24 12:43 | DRG 377 ==
LOC: ER 12:02 → 2N 17:58
PROVIDERS: Emergency Medicine; Internal Medicine; Internal Medicine Nephrology; Nurse Practitioner; Student in an Organized Health Care Education/Training Program; ADMIT Hospitalist; ATTEND Hospitalist
PROC: 009Y3ZX Drainage of Lumbar Spinal Cord, Percutaneous Approach, Diagnostic (ICD-10-PCS; 2019-12-12)
PROC: 30233N1 Transfusion of Nonautologous Red Blood Cells into Peripheral Vein, Percutaneous Approach (ICD-10-PCS; 2019-12-12)
PROC: 5A1D70Z Performance of Urinary Filtration, Intermittent, Less than 6 Hours Per Day (ICD-10-PCS; 2019-12-13)
PROC: 0W3P8ZZ Control Bleeding in Gastrointestinal Tract, Via Natural or Artificial Opening Endoscopic (ICD-10-PCS; principal; 2019-12-15)
PROC: 5A1D70Z Performance of Urinary Filtration, Intermittent, Less than 6 Hours Per Day (ICD-10-PCS; principal; 2019-12-15)
PROC: 0DB68ZX Excision of Stomach, Via Natural or Artificial Opening Endoscopic, Diagnostic (ICD-10-PCS; principal; 2019-12-15)
PROC: 0DJ08ZZ Inspection of Upper Intestinal Tract, Via Natural or Artificial Opening Endoscopic (ICD-10-PCS; 2019-12-22)
DX: K57.33 Diverticulitis of large intestine without perforation or abscess with bleeding (principal); N18.6 End stage renal disease; D62 Acute posthemorrhagic anemia; I13.2 Hypertensive heart and chronic kidney disease with heart failure and with stage 5 chronic kidney disease, or end stage renal disease; M46.26 Osteomyelitis of vertebra, lumbar region; Z68.41 Body mass index [BMI] 40.0-44.9, adult; M19.90 Unspecified osteoarthritis, unspecified site; G47.33 Obstructive sleep apnea (adult) (pediatric); I50.9 Heart failure, unspecified; I95.9 Hypotension, unspecified; K44.9 Diaphragmatic hernia without obstruction or gangrene; K64.8 Other hemorrhoids; E86.9 Volume depletion, unspecified; M46.46 Discitis, unspecified, lumbar region; M48.061 Spinal stenosis, lumbar region without neurogenic claudication; I25.10 Atherosclerotic heart disease of native coronary artery without angina pectoris; E66.01 Morbid (severe) obesity due to excess calories; I07.1 Rheumatic tricuspid insufficiency; K29.70 Gastritis, unspecified, without bleeding; E11.22 Type 2 diabetes mellitus with diabetic chronic kidney disease; E11.51 Type 2 diabetes mellitus with diabetic peripheral angiopathy without gangrene; Z96.642 Presence of left artificial hip joint; Z20.828 Contact with and (suspected) exposure to other viral communicable diseases; Z79.84 Long term (current) use of oral hypoglycemic drugs; Z99.81 Dependence on supplemental oxygen; Z79.899 Other long term (current) drug therapy; Z88.8 Allergy status to other drugs, medicaments and biological substances; Z91.048 Other nonmedicinal substance allergy status; Z87.891 Personal history of nicotine dependence; Z89.511 Acquired absence of right leg below knee
CPT/HCPCS: 10081; 32100; 62110; 62900; 70005

== ENCOUNTER 2020-03-26 12:53 | Inpatient (IN) | payer OTHER, BC ==
[2020-03-26] VITALS (26 sets, daily range): BP systolic 76–156; BP diastolic 34–75
[~2020-03-26] VITALS: Ht 182.9 cm; Wt 127.0 kg
[~2020-03-26 12:53] MED LIST changes: +AMOXICILLIN 50500 MG PO; +ASA81BEC PO; +AZELASTINE205.5 MCG/ NARES; +CARVEDILOL12.5 MG PO; +CARVEDILOL25 MG PO; +CYCLOBENZAPRINE10 MG PO; +DRIZALMA SPRINK60 MG PO; +GABAPENTIN 100100 MG PO; +HUMALOG100 UNIT/1 SUBQ; +HYDRALAZINE HC100 MG PO; +LANTUS SUBQ; +LASIX 80 MG TAB80 MG PO; +LIPITOR 20 MG T20 M1 PO; +LOSARTAN POTAS100 MG PO; +MELATONIN10 M3 PO; +METOLAZONE 5 MG5 MG PO; +MINOXIDIL2.5 MG PO; +NEPHRO-VITE RX1 TA1 PO; +NEXIUM40 MG PO; +NORVASC 2.5 MG2.5 M1 PO; +PERCOCET PO; +PLAVIX 75 MG TA75 MG PO; +RENAGEL800 MG PO; +RENVELA800 MG PO; +RETACRIT4000 UNIT/ IV; +VIAGRA100 MG PO; +VITAMIN C + RO500 MG PO; +[UNRECOGNIZED DRUG - OTHER] PO
[2020-03-26 13:43] LABS: WBC 9.6 thou/uL (4.0-11.0)
[2020-03-26 13:45] LABS: BASOPHILS 0.3 % (0.0-2.0); EOSINOPHILS 2.1 % (0.0-3.0); LYMPHOCYTES 9.4 % (24.0-44.0); MCHC 33.2 g/dL (28.0-37.0); MCV 90.5 fL (80.0-100.0); MONOCYTES 4.2 % (1.0-8.0); PLATELET COUNT 173 thou/uL (150-400); RBC 1.37 mil/uL (4.50-6.00); RDW 17.7 % (10.5-14.5)
[2020-03-26 13:56] LABS: HEMATOCRIT 12.4 % (42.0-52.0); HEMOGLOBIN 4.1 gm/dL (14.0-18.0)
[2020-03-26 14:08] LABS: CALCIUM 7.6 mg/dL (8.5-10.1); CREATININE 6.3 mg/dL (0.7-1.3)
[2020-03-26 14:11] LABS: ALBUMIN 2.9 g/dL (3.4-5.0); TOTAL BILIRUBIN 0.4 mg/dL (0.2-1.0); TOTAL PROTEIN 5.9 g/dL (6.4-8.2); TROPONIN-I 0.36 ng/mL (<0.06)
--- NOTE | 2020-03-26 14:19 | NUR ---
IV TEAM AT BEDSIDE TO ACCESS CENTRAL LINE
--- NOTE | 2020-03-26 15:40 | EKG ---
[address] [place] [address] ELECTROCARDIOGRAM REPORT Name: GLADIS BEARD Room #: REG JAMES Jang#: [id number] Admission: 03/26/20 Attend Phys: Discharge: Date of : 69 Report #: [id number] [facility] ED Test Date: 2020-03-26 Test Time: 13:37:02 Pat Name: GLADIS BEARD Department: Room: Gender: Drawing In Machine Tender: : 1965 Requested By: Usama Hartman Order Number: [id number] MD: Brandan Reyna Measurements Intervals [place] Rate: 66 P: 58 NH: 197 QRS: 61 QRSD: 170 T: 41 QT: 501 QTc: 525 Interpretive Statements Sinus rhythm Right bundle branch block Compared to ECG 12/12/2019 12:18:30 No significant changes Electronically Signed On 03-26-2020 15:40:16 LOCK CORNER MACHINE OPERATOR by Brandan Reyna [email or web address] <ELECTRONICALLY SIGNED> By: Brandan Reyna MD 03/26/20 1540 1337 1337 Brandan Reyna MD /EPI
[2020-03-26] MEDS ORDERED: ROXICODONE5 M2 PO (16:22)
[2020-03-26] MEDS ORDERED: NEPHRO-VITE RX1 TA1 PO (16:26)
[2020-03-26] MEDS ORDERED: MINOXIDIL2.5 MG PO (16:27)
[2020-03-26] MEDS ORDERED: LASIX 40 MG TAB40 MG PO (16:27)
[2020-03-26] MEDS ORDERED: [UNRECOGNIZED DRUG - REMARK] PO (16:28)
[2020-03-26] MEDS ORDERED: FOLIC ACID1 MG PO (16:29)
--- NOTE | 2020-03-26 16:51 | NUR ---
VAT CONSULTED FOR A CL FOR THIS DIALYSIS PT. 5FRTL PLACED LT IJ. PLEASE SEE NI FOR DETAILS
[2020-03-26 21:16] LABS: HEMATOCRIT 18.3 % (42.0-52.0); HEMOGLOBIN 6.1 gm/dL (14.0-18.0)
[2020-03-26 21:38] LABS: INR 1.1; PROTIME 10.8 Seconds (9.3-11.4)
[2020-03-27] VITALS (81 sets, daily range): BP systolic 108–176; BP diastolic 51–94
--- NOTE | 2020-03-27 01:33 | NUR ---
ASSUMED CARE OF PATIENT FROM ER. PATIENT ABLE TO ANSWER SOME ADMISSION QUESTIONS. CALLED, EXTENSIVE MEDICAL HISTORY DISCUSSED. STATES HE IS MORE AND MORE FORGETFUL SINCE TIA'S AND STROKE. BLOOD TRANSFUSION ORDERED FOR HGB 6.1. WILL REPEAT H&H AFTER TRANSFUSION. POC GOALS ESTABLISHED. WILL CONTINUE TO MONITOR.
[2020-03-27 04:27] LABS: HEMOGLOBIN 6.6 gm/dL (14.0-18.0)
[2020-03-27 04:29] LABS: MCH 29.4 pg (26.0-34.0); MCHC 33.9 g/dL (28.0-37.0); MCV 86.6 fL (80.0-100.0); RBC 2.25 mil/uL (4.50-6.00); RDW 17.4 % (10.5-14.5); WBC 10.2 thou/uL (4.0-11.0)
[2020-03-27 04:31] LABS: CALCIUM 7.3 mg/dL (8.5-10.1); CREATININE 7.1 mg/dL (0.7-1.3); POTASSIUM 3.6 mmol/L (3.5-5.1)
[2020-03-27 04:33] LABS: HEMATOCRIT 19.5 % (42.0-52.0)
--- NOTE | 2020-03-27 15:46 | NUR ---
chart review. unable to visit with anjana rt on cpap. cm spoke with his artie via phone call. intro to cm and antonip. " live in house, with pt, and 11 yr old daughter. all 3 of us had covid in january, daughter is now having post covid problems and so is anjana. has built in bench in bathroom, cpap, no home oxygen, prothesis and wheel chair. goes to [facility] location. he no longer drives, family takes him to dialysis. on hh with saeed at home. been to [facility] acute rehab in past. manage his medication. able to feed self. still works outside the home. i would like to know when i can visit him? "/ artie. passed on info to bedside nurse rt visiting question.
[2020-03-27 18:46] LABS: HEMATOCRIT 22.7 % (42.0-52.0); HEMOGLOBIN 7.7 gm/dL (14.0-18.0)
[2020-03-27 19:21] LABS: HEMATOCRIT 22.8 % (42.0-52.0); HEMOGLOBIN 7.7 gm/dL (14.0-18.0)
--- NOTE | 2020-03-27 20:01 | NUR ---
ASSUMED CARE OF PT AT APPROX 1800 TRANSFER FROM ICU. SETTLED PT IN ROOM. NO C/O PAIN OR DISTRESS AT THIS TIME. PASSED ON REPORT TO NIGHT NURSE.
--- NOTE | 2020-03-28 03:17 | NUR ---
PT ALERT AND ORIENTED. VITALS STABLE. DENIES CHEST DISCOMFORT, NAUSEA OR VOMITING. PT ON PPI DRIP, NO NOTABLE BLEED NOTED. C/O OF LOWER BACK PAIN, UNABLE TO BE ALLEVIATED BY FENTANYL PRN. NO SIGN OF DISTRESS OBSERVED. WILL CONTINUE TO FOLLOW POC.
[2020-03-28 03:30] VITALS: BP 131/64
[2020-03-28 08:00] VITALS: BP 129/69
[2020-03-28 10:26] LABS: HEMATOCRIT 22.6 % (42.0-52.0); HEMOGLOBIN 7.6 gm/dL (14.0-18.0); MCH 29.4 pg (26.0-34.0); MCHC 33.7 g/dL (28.0-37.0); MCV 87.3 fL (80.0-100.0); RBC 2.58 mil/uL (4.50-6.00); RDW 16.6 % (10.5-14.5); WBC 7.3 thou/uL (4.0-11.0)
[2020-03-28 12:15] VITALS: BP 115/68
[2020-03-28 16:00] VITALS: BP 106/65
--- NOTE | 2020-03-28 18:21 | NUR ---
ASSUMED PT CARE AT 0730 THIS MORNING. PT WAS SITTING ON SIDE OF BED. PT STATES HE HAS LOWER BACK PAIN AND REQUEST PAIN MEDICATIONS. ASSESSMENT UNCHANGED THROUGHOUT THE DAY. PT ALERT/ORIENTED X4, LUNGS CLEAR/DIM, SIS2, NSR WITH BBB, ABD SOFT/NT. PT RECEIVED MULTIPLE DOSES OF PAIN MEDICATIONS FOR LOWER BACK PAIN. PTS BLOOD GLUCOSE INCREASED THROUGHOUT THE DAY SO PATIENT WAS PLACED ON MODERATE SSI. PT CURRENTLY SLEEPING WITH TV ON, LIGHTS OUT, VSS. WILL CONTINUE TO MONITOR.
[2020-03-28 19:45] VITALS: BP 105/48
[2020-03-28 21:42] LABS: HEMOGLOBIN 6.7 gm/dL (14.0-18.0)
[2020-03-28 21:53] LABS: HEMATOCRIT 19.9 % (42.0-52.0)
[2020-03-29 01:16] VITALS: BP 114/65; BP 158/74
[2020-03-29 03:48] VITALS: BP 139/70
--- NOTE | 2020-03-29 05:25 | NUR ---
PT FOUND WITH HGB OF 6.7 AND HcT 19.9. CRITICAL RESULTS COMMUNICATED TO INDUCTION COORDINATION ENGINEER MAORI PHYSIOTHERAPIST. 1 UNIT OF BLOOD TRANSFUSED. WILL RECHECK H&H
[2020-03-29 06:00] LABS: HEMATOCRIT 24.2 % (42.0-52.0); HEMOGLOBIN 8.2 gm/dL (14.0-18.0); MCH 29.6 pg (26.0-34.0); MCHC 34.1 g/dL (28.0-37.0); MCV 86.8 fL (80.0-100.0); RBC 2.79 mil/uL (4.50-6.00); RDW 16.8 % (10.5-14.5); WBC 6.6 thou/uL (4.0-11.0)
--- NOTE | 2020-03-29 08:02 | NUR ---
PT.'S HCT AND HGB HAVE IMPORVED POST TRANSFUSION OF ONE UNIT LAST NIGHT. PT. SLEEPING NOW, CALL LIGHT WITHIN REACH AND NO SIGN'S OF DISTRESS.
--- NOTE | 2020-03-29 09:45 | NUR ---
MEDICATED FOR BACK PAIN-CHRONIC WITH FENTANYL. HE IS NOW SAYING HE FEELS CONSTIPATED SO WILL GIVE HIM SOMETHING FOR SUCH.
[2020-03-29 12:00] VITALS: BP 141/74
--- NOTE | 2020-03-29 12:53 | NUR ---
PT. REQUESTING PAIN MEDICATION AGAIN FOR HIS BACK PAIN, REMAINDER OF FENTANYL NOW IVP.
[2020-03-29 13:17] VITALS: BP 128/79
[2020-03-29 16:29] VITALS: BP 128/79
--- NOTE | 2020-03-29 16:48 | NUR ---
Pt dcing home this evening after dialysis. [facility] notified as well as [facility]. Dc orders faxed to both for resumption of care.
[2020-03-29 17:30] VITALS: BP 140/77
--- NOTE | 2020-03-29 19:25 | NUR ---
LUCIA FINISHED AT 18:50-LTER THEN ANTICIPATED. 3000ML TAKEN OFF IN PROCEDURE. CALLED FOR HIS RIDE IN HALF AN HOUR. DENIES ANY DIZZINESS, NO CP, NO SOB, VERY PLEASANT OVERALL HAD NICE CONVERSATIONS THROUGHOUT THE WHOLE DAY, I HAVE TAKEN CARE OF HIM PRIOR-NICE FAMILY, GREAT SUPPORT AT HOME.
--- NOTE | 2020-03-29 21:43 | NUR ---
PATIENT D/C TO HOME AT 2047; R IJ D/C BY NURSE AND PATIENT OBSERVED FOR 30 MIN PRIOR TO LEAVING FLOOR; NO C/O OF PAIN;
--- NOTE | 2020-04-01 12:52 | NUR ---
Note Given: Y Facility List Provided:Y Facility Verna: No facility chosen at this time
== END 2020-03-29 20:48 | disposition home or self-care (01) | DRG 377 ==
LOC: ER 12:53 → EROBS 16:07 → 2N 16:07 → ICU 16:07 → 2N 03-27 17:44
PROVIDERS: Nurse Practitioner Family; Physician Assistant; ADMIT Hospitalist; ATTEND Hospitalist
DX: K92.2 Gastrointestinal hemorrhage, unspecified (principal); N18.6 End stage renal disease; U07.1 COVID-19; J12.9 Viral pneumonia, unspecified; D62 Acute posthemorrhagic anemia; I13.2 Hypertensive heart and chronic kidney disease with heart failure and with stage 5 chronic kidney disease, or end stage renal disease; R77.8 Other specified abnormalities of plasma proteins; M19.90 Unspecified osteoarthritis, unspecified site; Z96.642 Presence of left artificial hip joint; I50.9 Heart failure, unspecified; E11.51 Type 2 diabetes mellitus with diabetic peripheral angiopathy without gangrene; K21.9 Gastro-esophageal reflux disease without esophagitis; E66.9 Obesity, unspecified; Z68.38 Body mass index [BMI] 38.0-38.9, adult; Z83.3 Family history of diabetes mellitus; Z88.8 Allergy status to other drugs, medicaments and biological substances; Z82.49 Family history of ischemic heart disease and other diseases of the circulatory system; Z89.511 Acquired absence of right leg below knee; Z86.14 Personal history of Methicillin resistant Staphylococcus aureus infection; Z88.6 Allergy status to analgesic agent; Z88.1 Allergy status to other antibiotic agents; Z87.891 Personal history of nicotine dependence
CPT/HCPCS: 10078; 10081; 32100

== ENCOUNTER 2020-04-06 15:00 | Inpatient (IN) | payer OTHER, BC ==
[~2020-04-06] VITALS: Ht 182.9 cm; Wt 140.0 kg
[2020-04-06] VITALS (17 sets, daily range): BP systolic 86–169; BP diastolic 32–138
--- NOTE | ~2020-04-06 | HC ---
[facility] [place] [place] [address] CONSULTATION Name: GLADIS BEARD Room #: 243-P ADM IN M.R.#: [id number] Admission: 04/06/20 Attend Phys: Marvin Castañeda MD Discharge: Date of : 69 Report #: [id number] THIS REPORT FOR: cc: FAM - Family physician unknown FAM - Family physician unknown Lopez Hernandez MD ~ DATE OF SERVICE: 04/07/2020 HISTORY OF PRESENT ILLNESS: The patient is a 54-year-old male who is well known to me with a history of recurrent possible GI bleed and anemia. He has multiple medical problems including end-stage renal disease, on hemodialysis Wednesday, Wednesday and Wednesday, also on EPO, who has had recurrent drops in his hemoglobin, possibly from GI bleeds. He underwent an EGD and colonoscopy by myself on 12/12/2019 for GI bleed and drop in hemoglobin at that time. Upper endoscopy showing mild gastritis, but otherwise normal. No signs of bleeding on EGD. Colonoscopy the same day showed a mix of old and new blood throughout the colon. Multiple washings and aspirations were performed. Multiple diverticula were noted. No obvious bleeding site was seen; however, a single diverticulum with surrounding erythema was noted. I suspect that may be the cause of his bleeding at that time and an EndoClip was placed. He had no further bleeding and did well for a period of time. He then had further signs of bleeding, possible melanotic-type stools and underwent an upper endoscopy apparently at [facility] without one being negative. The patient then had a repeat hospitalization on 03/26/2020 of this year with melanotic stools and a drop in hemoglobin to 4.1, however, the week before, he had episodes of severe epistaxis to the point where he was evaluated by ENT and underwent packing as well as cauterization for his epistaxis. To complicate things, he previously was on aspirin and Plavix. During that hospitalization, we felt that the bleeding was likely from the epistaxis and his hemoglobin stabilized after transfusions and he was discharged. Also of note, he has had an M2A capsule within the last few months and the small bowel was normal. He presents yesterday again to the Emergency Room with complaints of melanotic-type stools for the last 2 weeks he states. Denies any nausea or vomiting. He does report some mild crampy abdominal pain at times. His hemoglobin on admission yesterday was 5.0. His most recent one to compare on 03/29/2020 was 8.2. He received 2 units of packed cells overnight and was admitted to the ICU. Initially, he was hypotensive, but this stabilized. His repeat hemoglobin after 2 units was 7.5, today is 7.1. He denies any further bowel movements at this time. His aspirin has been held. Currently, denies any chest pain or shortness of breath. No fevers or chills. He underwent a CT scan of the abdomen and pelvis yesterday, no acute abnormalities were identified. Mildly nodular liver and splenomegaly consistent with cirrhosis and portal hypertension were seen. Aortoiliac atherosclerosis was noted. Diffuse subcutaneous edema also seen. The patient does report generalized fatigue. [address] [address] CONSULTATION Name: GLADIS BEARD Room #: 243-P ADM IN M.R.#: [id number] Admission: 04/06/20 Attend Phys: Marvin Castañeda MD Discharge: Date of : 69 Report #: [id number] PAST MEDICAL HISTORY: End-stage renal disease, on hemodialysis; history of chronic anemia, on EPO; history of recurrent GI bleed, hypertension, sleep apnea, obesity, degenerative joint disease, left total hip replacement, right etujb-gwq-whch amputation, he has had multiple lower extremity surgeries; history of MRSA, non-insulin dependent diabetes, carpal tunnel surgery, diverticulosis, possible diverticular bleed in November. CT showing a nodular liver, possible history of cirrhosis. MEDICATIONS ON ADMISSION: EPO, melatonin, insulin, Viagra, Nexium 40 mg daily, duloxetine, Lipitor, aspirin 81 mg, Neurontin, oxycodone p.r.n., folic acid, minoxidil, Lasix, vitamin D3, and folic acid. REVIEW OF SYSTEMS: As per HPI. ALLERGIES: Adhesives, daptomycin eyedrops, hydrocodone, and linezolid. FAMILY HISTORY: Negative for colon cancer. SOCIAL HISTORY: Former smoker, quit greater than a year ago. He denies any alcohol use at this time. PHYSICAL EXAMINATION: VITAL SIGNS: Temperature is 98.3, pulse 75, blood pressure 176/85, and respiratory rate is 9. GENERAL: He is alert and oriented x 3, in no acute distress. HEENT: Sclerae nonicteric. Oropharynx clear. NECK: Supple, without lymphadenopathy. CARDIOVASCULAR: Regular rate and rhythm. CHEST: Clear to auscultation bilaterally. ABDOMEN: Obese, soft. He is minimally tender in the periumbilical region. Nondistended. Normoactive bowel sounds. EXTREMITIES: BKA is noted. No edema. LABORATORY DATA: Sodium 140, potassium 4.7, chloride 102, bicarbonate 29, BUN 62, creatinine 6.1, glucose 130, AST 13, total bilirubin 0.4, calcium 8.0, alkaline phosphatase 77, ALT is 25, total protein 5.8, albumin 2.9. Lactic acid level 1.5. Troponin 0.06 yesterday. INR 1.0. WBC 6.2, hemoglobin 7.1 after 2 units this morning, MCV is 87.6, and platelet count is 183. Stool Hemoccult positive yesterday. ASSESSMENT AND PLAN: 1. Anemia. The patient with a history of chronic anemia due to end-stage renal disease, on EPO; however, he has recurrent drop in his hemoglobin and likely due to GI bleeds. He has had heme positive stool yesterday, melanotic-type stools recently per his history. I explained to the patient he has undergone 2 EGDs, a [facility] [address] [place] [address] CONSULTATION Name: GLADIS BEARD Room #: 243-P ADM IN M.R.#: [id number] Admission: 04/06/20 Attend Phys: Marvin Castañeda MD Discharge: Date of : 69 Report #: [id number] colonoscopy and an M2A capsule within the last 4 months. The only positive finding was during the colonoscopy in which a large amount of new and old blood was seen. Suspected at that time in November to have a diverticular bleed. He denies any bright red blood per rectum or maroon stools at this time. He is on aspirin. He is also on PPI therapy. Overall, complex case as he has continued signs of bleeding and this has not been seen recently on upper endoscopy. We therefore discussed repeating colonoscopy tomorrow. If this is negative, consider repeat upper endoscopy at the same time. May need to consider as well repeating M2A capsule. I also considered nuclear medicine scan, however, does not appear that he is bleeding briskly enough in order for this to be positive. He had an appropriate increase in his hemoglobin after 2 units last night and he had no further signs of bleeding at this time. The patient understands and agrees with this plan. We will continue to hold aspirin, continue PPI therapy and prep for colonoscopy, possible EGD tomorrow. 2. CT scan showing nodular appearance of the liver suggesting cirrhosis. Liver function tests at this time are normal. The patient denies any alcohol use for quite some time. Used to drink moderately in the past. He states no previous history of cirrhosis per the patient. We will proceed with further liver lab workup at this time. Thank you for allowing me to participate in his care. By: 1118 1334 Lopez Hernandez MD /nt
[~2020-04-06 15:00] MED LIST changes: +FOLIC ACID1 MG PO; +LASIX 40 MG TAB40 MG PO; +ROXICODONE5 M2 PO; +[UNRECOGNIZED DRUG - REMARK] PO
[2020-04-06 15:45] LABS: MCV 89.6 fL (80.0-100.0); WBC 5.3 thou/uL (4.0-11.0)
[2020-04-06 15:47] LABS: ABSOLUTE NEUTROPHILS 3.6 thou/uL (1.4-8.2); BASOPHILS 0.5 % (0.0-2.0); EOSINOPHILS 3.2 % (0.0-3.0); LYMPHOCYTES 19.3 % (24.0-44.0); MCH 29.5 pg (26.0-34.0); MONOCYTES 8.4 % (1.0-8.0); PLATELET COUNT 168 thou/uL (150-400); POLYS 68.6 % (36.0-66.0); RBC 1.71 mil/uL (4.50-6.00); RDW 17.4 % (10.5-14.5)
[2020-04-06 15:54] LABS: HEMATOCRIT 15.3 % (42.0-52.0)
[2020-04-06 16:07] LABS: CALCIUM 8.1 mg/dL (8.5-10.1); CREATININE 5.6 mg/dL (0.7-1.3); POTASSIUM 4.9 mmol/L (3.5-5.1)
[2020-04-06 16:13] LABS: ALBUMIN 2.8 g/dL (3.4-5.0); TOTAL BILIRUBIN 0.4 mg/dL (0.2-1.0); TOTAL PROTEIN 5.7 g/dL (6.4-8.2)
[2020-04-06 16:27] LABS: APTT 23.9 Seconds (24.5-32.8); PROTIME 11.4 Seconds (9.3-11.4)
[2020-04-06 16:46] LABS: ANISOCYTOSIS 2+
[2020-04-06 22:23] LABS: HEMATOCRIT 22.3 % (42.0-52.0)
[2020-04-06 22:26] LABS: HEMOGLOBIN 7.5 gm/dL (14.0-18.0)
--- NOTE | 2020-04-06 22:41 | NUR ---
Patient admitted to ICU room 243 at 1900. This RN completed admission tasks and called all consults. Patient stable, on protonix gtt. GI to assess in the morning. Will continue to monitor.
[2020-04-07] VITALS (23 sets, daily range): BP systolic 103–186; BP diastolic 47–101
--- NOTE | 2020-04-07 00:26 | NUR ---
This RN spoke to supervisor hospitality house, Ju regarding patients negative rapid COVID PCR. Stated did not need to be in isolation since patient was asymptomatic. Isolation precautions removed.
--- NOTE | 2020-04-07 02:56 | NUR ---
Patient desatting to lower 80's when in deep sleep. Reports sleep apnea and at home at night CPAP use. This RN just placed patient on 2L NC. Vital signs stable. Will continue to monitor.
[2020-04-07 04:34] LABS: HEMOGLOBIN 7.1 gm/dL (14.0-18.0); MCH 29.7 pg (26.0-34.0); MCHC 33.9 g/dL (28.0-37.0); MCV 87.6 fL (80.0-100.0); RBC 2.4 mil/uL (4.50-6.00); RDW 16.7 % (10.5-14.5); WBC 6.2 thou/uL (4.0-11.0)
[2020-04-07 04:54] LABS: ALBUMIN 2.9 g/dL (3.4-5.0); CREATININE 6.1 mg/dL (0.7-1.3); POTASSIUM 4.7 mmol/L (3.5-5.1); TOTAL BILIRUBIN 0.4 mg/dL (0.2-1.0); TOTAL PROTEIN 5.8 g/dL (6.4-8.2)
--- NOTE | 2020-04-07 06:32 | NUR ---
Discussed patients plan of care with patient. Plan to visit with GI this morning to discuss next steps. Vital signs stable. Patient progressing towards goals.
--- NOTE | 2020-04-07 09:50 | NUR ---
ASSUMED CARE OF PT AT 0700 DR. JON AT BEDSIDE AT 0945, RESTARTING HOME BP MED AND PUTTING IN ORDERS FOR TRANSFER.
--- NOTE | 2020-04-07 18:30 | NUR ---
PT RECEIVED THIS AFTERNOON FROM ICU ALERT AND ORIENTED AND IN NO ACUTED DISTRESS. AGREE W/ AM ASSESSMENT. PT HAS CHRONIC BACK PAIN AND LIKES TO SIT UP ON THE SIDE OF THE BED FOR PAIN RELIEF. DR. DO IN TO SEE PT AND PLAN FOR COLONOSCOPY IN AM. MIRALAX PREP GIVEN. PT HAVING BM IN THE BATHROOM AT THIS TIME. TOOK CLEAR LIQUIDS FOR DINNER. DIALYSIS WILL COORDINATE W/ GI LAB ON TREATMENT TOMORROW.
[2020-04-08 07:30] VITALS: BP 188/94
[2020-04-08 08:42] LABS: HEMOGLOBIN 6.3 gm/dL (14.0-18.0)
[2020-04-08 08:43] LABS: HEMATOCRIT 18.8 % (42.0-52.0)
--- NOTE | 2020-04-08 10:24 | EKG ---
[place] [address] [facility] [place] [address] ELECTROCARDIOGRAM REPORT Name: GLADIS BEARD Room #: 447-P ADM IN M.R.#: [id number] Admission: 04/06/20 Attend Phys: Marvin Castañeda MD Discharge: Date of : 69 Report #: [id number] [facility] ED Test Date: 2020-04-06 Test Time: 15:49:54 Pat Name: GLADIS BEARD Department: Room: [facility] Gender: M Global Coordinator: JCHAIALDO : 1965 Requested By: Ramos Child Order Number: [id number] MD: Nehemiah Taylor Measurements Intervals [place] Rate: 64 P: 71 NM: 185 QRS: 49 QRSD: 153 T: 46 QT: 474 QTc: 489 Interpretive Statements Sinus rhythm Right bundle branch block Baseline wander in lead(s) V5 Compared to ECG 03/26/2020 13:37:02 No significant changes Electronically Signed On 04-08-2020 10:24:16 WAXING MACHINE OPERATOR by Nehemiah Taylor [email or web address] <ELECTRONICALLY SIGNED> By: Nehemiah Taylor MD, [facility] 04/08/20 1024 1549 1549 Nehemiah Taylor MD, FACC /EPI
[2020-04-08 14:10] VITALS: BP 183/95
[2020-04-08 15:34] VITALS: BP 183/95
--- NOTE | 2020-04-08 15:41 | NUR ---
ASSESSMENT: CM REVIEWED CHART AND SPOKE WITH PT. PT IS ALERT AND ORIENTED X4. PT REPORTS HE LIVES IN A HOUSE WITH HIS AND DAUGHTER. PT REPORTS ABOUT 3 STEPS TO ENTER THE HOME AND NONE ONCE INSIDE. PT STATES HE HAS A CPAP, WHEELCHAIR, PROSTHESIS AT HOME. PT HAS HX ESRD AND GETS DIALYSIS AT [facility] MWF 1200. PT REPORTS HE IS IN SERVICE WITH [facility]. CM NOTIFIED INVESTOR RELATIONS MANAGER TO PLEASE SEND REFERRAL. PT IS GETTING COLONSCOPY TODAY. CM WILL CONTINUE TO FOLLOW TO ASSIST NEEDED.
--- NOTE | 2020-04-08 16:04 | NUR ---
PT ON SERVICE WITH [facility] AT HOME HH PRIOR TO ADM FAXED CLINICAL UPDATE SPOKE WITH [facility] IN INTAKE THEY WILL RESUME CARE AT PR.
[2020-04-08 16:06] LABS: HAV IgM AB (ANTI-HAV IgM) Negative (Negative); HEPATITIS B SURFACE AG Negative (Negative); HEPATITIS C VIRUS AB <0.1 (0.0-0.9)
--- NOTE | 2020-04-08 16:41 | NUR ---
ON-GOING ASSESSMENT: CM WAS NOTIFIED BY BEDSIDE RN THAT GI PHYSICIAN RECOMMENDING TRANSFER DUE TO THE NEED FOR DOUBLE BALLOON ENTEROSCOPY. CM REACHED OUT TO PT WHO IS AGREEABLE WELL HIS . REPORTS SHE PREFERS [facility] LOCATION IF NOT IS AGREEABLE WITH [facility]. CM CONTACTED [facility] TRANFER TEAM [phone] AND FAXED COPY OF INSURANCE AND FACESHEET WELL PROVIDED PHYSICIAN CONTACT AND UNIT # TO REACH RN. DR. MACIAS STATING PT IS PLACED ON A WAITING LIST CURRENTLY AT [facility]. CM CONTACTED [facility] TRANSFER TEAM [phone] TO REQUEST TRANSFER AND FAXED CLINICAL TO THEIR FAX [phone] AND AWAITING INPUT. CM NOTIFIED THEM TO CONTACT BEDSIDE RN IF THEY HAVE A BED WELL HAVE THE CONTACT FOR PHYSICIAN. CM UPDATED . [facility] AMBULANCE FORM IS ON CHART AND WILL NEED TO BE FINISHED BY BEDSIDE RN AND FAXED TO [phone] THEN CONTACT [facility] [phone] TO ARRANGE TRANSPORT. TRANSFER FORM PLACED ON CHART TO BE COMPLETED BY BEDSIDE RN. CM WILL CONTINUE TO FOLLOW. CM UPDATED CM DIRECTOR.
[2020-04-08 17:05] VITALS: BP 178/93
[2020-04-08 17:21] LABS: HEMATOCRIT 25.7 % (42.0-52.0)
[2020-04-08 17:30] LABS: HEMOGLOBIN 8.5 gm/dL (14.0-18.0)
--- NOTE | 2020-04-08 18:30 | NUR ---
PT ASSESSED AT START OF SHIFT. PT DIALYZED AND RECEIVED ONE UNIT PRBC'S WHILE ON DIALYSIS. WENT TO GI LAB FOR EGD/COLONOSCOPY RIGHT AFTER AND RETURNED THIS AFTERNOON. PT NAPPED SOME. AM MEDS GIVEN AROUND DINNER TIME. BP ELEVATED BUT CAME DOWN AFTER AM MEDS GIVEN. TALKED W/DR. MILES AND HE REQUESTED PT BE TRANSFERRED TO ANOTHER HOSPITAL FOR A DOUBLE BALLOON ENTEROSCOPY HE HAS BLEED FARTHER UP. HOSPITAL FELLOW WORKING ON THIS AND IN PROCESS TO GO EITH[facility] TO [facility] OR [facility] [place]. PT AGREEABLE. TAKING FULL LIQUIDS PER ORDERS.
[2020-04-08] MEDS ORDERED: HYDRALAZINE 2525 MG PO (19:09)
[2020-04-08 20:49] VITALS: BP 152/71
[2020-04-08 21:25] VITALS: BP 152/71
--- NOTE | 2020-04-08 21:25 | NUR ---
ASSESSMENT COMPLETED.DAPHNE WONG LPN WILL GIVE HS MEDS.PT ALERT AND ORIENTED WITH FORGETFULNESS. PT UPDATED ON PLAN TO TRANSFER TO [facility]. SPOKE TO VIA FACE TIME AND ALL NECESSARY QUESTIONS ANSWERED.REPORT GIVEN TO AMY SUMMERS AT [facility] AT 3110-TEL [phone]. AWAITING [facility] WITH NO ETA AT THIS TIME.
[2020-04-10 13:09] LABS: MITOCHONDRIAL ANTIBODY <20.0 Units (0.0-20.0)
== END 2020-04-08 22:39 | disposition short-term general hospital (02) | DRG 377 ==
LOC: ER 15:00 → EROBS 17:15 → 4S 17:15 → ICU 18:41 → 4S 04-07 14:39
PROVIDERS: Anesthesiology; Emergency Medicine; Hospitalist; Internal Medicine Nephrology; Specialist; ADMIT Internal Medicine; ATTEND Internal Medicine
PROC: 30233N1 Transfusion of Nonautologous Red Blood Cells into Peripheral Vein, Percutaneous Approach (ICD-10-PCS; principal; 2020-04-06)
PROC: 0DJ08ZZ Inspection of Upper Intestinal Tract, Via Natural or Artificial Opening Endoscopic (ICD-10-PCS; 2020-04-08)
PROC: 0DJD8ZZ Inspection of Lower Intestinal Tract, Via Natural or Artificial Opening Endoscopic (ICD-10-PCS; 2020-04-08)
PROC: 5A1D70Z Performance of Urinary Filtration, Intermittent, Less than 6 Hours Per Day (ICD-10-PCS; 2020-04-08)
DX: K92.1 Melena (principal); N18.6 End stage renal disease; D62 Acute posthemorrhagic anemia; I12.0 Hypertensive chronic kidney disease with stage 5 chronic kidney disease or end stage renal disease; Z68.41 Body mass index [BMI] 40.0-44.9, adult; Z20.822 Contact with and (suspected) exposure to COVID-19; E11.22 Type 2 diabetes mellitus with diabetic chronic kidney disease; Z96.642 Presence of left artificial hip joint; E66.9 Obesity, unspecified; E11.51 Type 2 diabetes mellitus with diabetic peripheral angiopathy without gangrene; G47.33 Obstructive sleep apnea (adult) (pediatric); Z89.511 Acquired absence of right leg below knee; Z86.14 Personal history of Methicillin resistant Staphylococcus aureus infection; Z79.899 Other long term (current) drug therapy; Z79.4 Long term (current) use of insulin; Z79.82 Long term (current) use of aspirin; Z88.8 Allergy status to other drugs, medicaments and biological substances; Z91.048 Other nonmedicinal substance allergy status; Z87.891 Personal history of nicotine dependence; Z99.2 Dependence on renal dialysis; Z79.01 Long term (current) use of anticoagulants; Z82.49 Family history of ischemic heart disease and other diseases of the circulatory system; Z83.3 Family history of diabetes mellitus
CPT/HCPCS: 10078; 10102; 32100; 62110; 62900; 70005